=== PATIENT | female | born 1960 | race Caucasian/White ===

== ENCOUNTER 2025-06-24 06:26 | Observation (INO) ==
[2025-06-24] MEDS ORDERED: IOPAMIDOL 100 ML BOTTLE IV ONE (06:27)
[2025-06-24] MEDS: 0.9 % SODIUM CHLORIDE 1,000 ML IV ONE (06:55)
[2025-06-24] MEDS: ONDANSETRON 4 MG/2 ML VIAL IV ONE (06:56)
[2025-06-24] MEDS: KETOROLAC 30 MG/ML VIAL IV ONE (06:56)
[2025-06-24 07:08] LABS: Basophils # (Auto) 0.01 K/mcL (0.00-0.30); Basophils % (Auto) 0.1 % (0.0-2.0); Eosinophils # (Auto) 0 K/mcL (0.00-0.70); Eosinophils % (Auto) 0 % (0.0-7.0); Hematocrit 45.2 % (34.1-44.9); Hemoglobin 14.9 g/dL (11.2-15.7); Lymphocytes # (Auto) 1.02 K/mcL (1.50-4.80); Lymphocytes % (Auto) 6.7 % (15.5-49.0); Mean Corpuscular HGB Conc 33.0 g/dL (31.0-36.0); Monocytes # (Auto) 0.94 K/mcL (0.10-0.90); Monocytes % (Auto) 6.2 % (1.0-12.0); Neutrophils % (Auto) 86.9 % (38.0-78.0); Platelet Count 209 K/mcL (140-440); RBC 5.25 M/mcL (3.59-5.38); WBC 15.2 K/mcL (4.5-11.0)
[2025-06-24 07:17] LABS: Bilirubin,Urine Negative (Negative); Color,Urine Yellow; Glucose,Urine (UA) Negative (Negative); Ketones,Urine Trace mg/dL (Negative); Leukocyte Esterase,Urine Negative /uL (Negative); PH,Urine 7.0 (5.0-9.0); Protein,Urine 30 mg/dL (Negative); Specific Gravity,Urine 1.020 (1.000-1.035); Urobilinogen,Urine Normal
[2025-06-24 07:24] LABS: ALT/SGPT 14 U/L (<40); AST/SGOT 15 U/L (<32); Albumin 4.2 gm/dL (3.2-5.2); Albumin/Globulin Ratio 1.8 (1.0-2.3); Alkaline Phosphatase 77 U/L (39-117); Anion Gap 13.0 (8.0-16.0); Bilirubin,Total 0.6 mg/dL (0.1-1.0); Blood Urea Nitrogen 11 mg/dL (8-23); Calcium 9.2 mg/dL (8.6-10.4); Carbon Dioxide 21 mmol/L (22-30); Chloride 105 mmol/L (96-108); Globulin 2.3 gm/dL (2.2-3.7); Glucose 133 mg/dL (70-105); Potassium 3.7 mmol/L (3.3-5.1); Sodium 139 mmol/L (133-145)
[2025-06-24] MEDS: PIPERACILLIN SODIUM/TAZOBACTAM 4.5 GM in DEXTROSE 5% IN WATER 50 ML IV ONE (08:38)
[2025-06-24] MEDS ORDERED: PHENYLephrine 1 MG/10 ML SYRINGE (ANEST) ONE (12:57)
[2025-06-24] MEDS ORDERED: GLYCOPYRROLATE 0.2 MG/ML VIAL IV ONE (12:57)
[2025-06-24] MEDS ORDERED: PROPOFOL 200 MG/20 ML VIAL IV ONE (12:57)
[2025-06-24] MEDS ORDERED: LIDOCAINE 2% PF 5 ML VIAL ONE (12:57)
[2025-06-24] MEDS ORDERED: KETOROLAC 30 MG/ML VIAL ONE (12:57)
[2025-06-24] MEDS ORDERED: METOCLOPRAMIDE 10 MG/2 ML VIAL ONE (12:57)
[2025-06-24] MEDS ORDERED: TRANEXAMIC ACID 1,000 MG/10 ML VIAL ONE (12:57)
[2025-06-24] MEDS ORDERED: MIDAZOLAM 2 MG/2 ML VIAL ONE (12:57)
[2025-06-24] MEDS ORDERED: ONDANSETRON 4 MG/2 ML VIAL ONE (12:57)
[2025-06-24] MEDS ORDERED: DEXAMETHASONE 10 MG/ML VIAL ONE (12:57)
[2025-06-24] MEDS ORDERED: ROCURONIUM 10 MG/ML ML IV ONE (14:18)
[2025-06-24] MEDS ORDERED: ceFAZolin 2 GM in DEXTROSE 5% IN WATER 50 ML IV SCH (15:00)
[2025-06-24] MEDS ORDERED: HYDROmorphone 0.5 MG/0.5 ML SYRINGE ONE (15:09)
[2025-06-24] MEDS ORDERED: SUGAMMADEX SODIUM 200 MG/2 ML VIAL IV ONE (15:19)
[2025-06-24] MEDS ORDERED: fentaNYL 100 MCG/2 ML VIAL IV PRN (15:32)
[2025-06-24] MEDS ORDERED: HYDROmorphone 0.5 MG/0.5 ML SYRINGE IV PRN (15:32)
[2025-06-24] MEDS ORDERED: DROPERIDOL 5 MG/2 ML VIAL IV PRN (15:32)
[2025-06-24] MEDS ORDERED: IPRATROPIUM/ALBUTEROL 3 ML AMPUL.NEB NEB PRN (15:32)
[2025-06-24] MEDS: BUPIVACAINE W/EPI 0.25% 50 ML VIAL IJ ONE (15:37)
[2025-06-24] MEDS: ACETAMINOPHEN 1,000 MG/100 ML BAG IV ONE (15:50)
[2025-06-24] MEDS ORDERED: ONDANSETRON 4 MG/2 ML VIAL IV PRN (15:56)
[2025-06-24] MEDS: DEXTROSE 5%-LR 1,000 ML IV SCH (16:00)
[2025-06-24] MEDS: PIPERACILLIN SODIUM/TAZOBACTAM 4.5 GM in DEXTROSE 5% IN WATER 100 ML IV SCH (16:25)
[2025-06-24] MEDS: LACTATED RINGERS 1,000 ML IV SCH (20:05)
[2025-06-24] MEDS: ACETAMINOPHEN 1,000 MG/100 ML BAG IV SCH (21:08)
[2025-06-25] MEDS: HYDROmorphone 0.5 MG/0.5 ML SYRINGE IV PRN (01:46)
[2025-06-25 07:52] LABS: Anion Gap 8.0 (8.0-16.0); Blood Urea Nitrogen 10 mg/dL (8-23); Calcium 8.3 mg/dL (8.6-10.4); Carbon Dioxide 23 mmol/L (22-30); Chloride 106 mmol/L (96-108); Glucose 117 mg/dL (70-105); Potassium 3.7 mmol/L (3.3-5.1); Sodium 137 mmol/L (133-145)
[2025-06-25 08:02] LABS: Hematocrit 37.2 % (34.1-44.9); Hemoglobin 11.9 g/dL (11.2-15.7); Mean Corpuscular HGB Conc 32.0 g/dL (31.0-36.0); Platelet Count 146 K/mcL (140-440); RBC 4.17 M/mcL (3.59-5.38); WBC 11.7 K/mcL (4.5-11.0)
[2025-06-25] MEDS ORDERED: VANCOMYCIN PER PHARMACY IV SCH (09:15)
[2025-06-25] MEDS: VANCOMYCIN 1,000 MG in 0.9 % SODIUM CHLORIDE 250 ML IV SCH (10:59)
[2025-06-25] MEDS: CIPROFLOXACIN 400 MG/200 ML BAG IV SCH (11:47)
[2025-06-26 06:05] LABS: Hematocrit 35.6 % (34.1-44.9); Hemoglobin 11.4 g/dL (11.2-15.7); Mean Corpuscular HGB Conc 32.0 g/dL (31.0-36.0); Platelet Count 147 K/mcL (140-440); RBC 3.96 M/mcL (3.59-5.38); WBC 9.5 K/mcL (4.5-11.0)
[2025-06-26 06:25] LABS: Anion Gap 8.0 (8.0-16.0); Blood Urea Nitrogen 7 mg/dL (8-23); Calcium 8.1 mg/dL (8.6-10.4); Carbon Dioxide 24 mmol/L (22-30); Chloride 108 mmol/L (96-108); Glucose 126 mg/dL (70-105); Potassium 3.3 mmol/L (3.3-5.1); Sodium 140 mmol/L (133-145)
[2025-06-26] MEDS: POTASSIUM CHLORIDE 20 MEQ/10 ML VIAL IV ONE (19:40)
[2025-06-26] MEDS: DEXTROSE 5%-1/2NS W/10MEQ KCL 1,000 ML IV SCH ×2 (19:42→22:16)
[2025-06-26] MEDS: SERTRALINE 100 MG TABLET PO SCH (20:21)
[2025-06-27 06:31] LABS: Hematocrit 36.6 % (34.1-44.9); Hemoglobin 11.8 g/dL (11.2-15.7); Mean Corpuscular HGB Conc 32.2 g/dL (31.0-36.0); Platelet Count 176 K/mcL (140-440); RBC 4.08 M/mcL (3.59-5.38); WBC 7.3 K/mcL (4.5-11.0)
[2025-06-27 07:08] LABS: Anion Gap 10.0 (8.0-16.0); Blood Urea Nitrogen 4 mg/dL (8-23); Calcium 8.2 mg/dL (8.6-10.4); Carbon Dioxide 24 mmol/L (22-30); Chloride 106 mmol/L (96-108); Glucose 111 mg/dL (70-105); Potassium 3.0 mmol/L (3.3-5.1); Sodium 140 mmol/L (133-145)
[2025-06-27 11:13] VITALS: TEMP 97.7; O2SAT 95
== END 2025-06-27 11:15 | disposition home or self-care (01) ==
LOC: ED 06:26 → SSSU 12:10 → MEDSUR 12:10
PROVIDERS: ADMIT Surgery Surgical Critical Care; ATTEND Surgery Surgical Critical Care
PROC: LAPAPPY (ICD-10-PCS; 2025-06-24 14:10)